=== PATIENT | male | born 1950 | race Caucasian/White ===

== ENCOUNTER 2023-09-17 10:48 | Outpatient (CLI) | payer MEDICARE, SELFPAY ==
--- NOTE | 2023-09-17 10:57 | ECG_ITS ---
Measurements Intervals [place] Rate: 60 P: HI: 0 QRS: 217 QRSD: 158 T: 47 QT: 432 QTc: 432 Interpretive Statements ELECTRONIC VENTRICULAR PACEMAKER UNDERLYING PROBABLY ATRIAL TACHYCARDIA/FLUTTER BASELINE ARTIFACT- I, II, III, AVR, AVL, AVF, V4-V6 NO FURTHER INTERPRETATION IS POSSIBLE ABNORMAL ECG COMPARED TO ECG 07/30/2019 11:03:40 UNDERLYING ATRIAL TACHYCARDA/FLUTTER NOW PRESENT Electronically Signed On 09-17-2023 12:07:56 [employer]EDER FRAME TENDER by Roby Marshall D.O.
== END 2023-09-17 10:49 | disposition home or self-care (01) ==
LOC: ANHSURGERY 10:52
PROVIDERS: PCP Family Medicine; Visit Provider Urology
DX: Z01.818 Encounter for other preprocedural examination (principal); E78.5 Hyperlipidemia, unspecified; R94.31 Abnormal electrocardiogram [ECG] [EKG]; R93.1 Abnormal findings on diagnostic imaging of heart and coronary circulation; Z95.0 Presence of cardiac pacemaker
CPT/HCPCS: 93005

== ENCOUNTER 2023-10-10 00:22 | Day surgery (SDC) | payer MEDICARE, SELFPAY ==
[2023-09-12 15:28] VITALS: BMI 43.4
--- NOTE | 2023-09-12 15:36 | PC.NURSE ---
Addendum entered by Gretchen Durbin RN 10/02/23 08:51: PT TO ARRIVE AT 0600 ON 10/10/23 FOR SURGERY AT 0730. PER PT, LAST DOSE OF ELIQUIS AND DICLOFENAC 7 DAYS PRIOR TO SURGERY. LAST DOSE OF VITAMINS TO BE 10/06/23. Original Note: Report to the Outpatient Waiting Room, entrance under the green pavilion located off [facility], at time 11:00 on date 09/19/23. Planned Procedure Time: 1:00. Time changes happen often and if your time is changed the preop area will call you the afternoon before. - You and your visitor will be asked to self-screen and do not enter if you have any COVID symptoms. - A mask is optional within the hospital at this time. Patients may have clear liquids (water, carbonated beverages, clear teas, apple juice) until 3 hours prior to surgery (10:00) with a maximum of 20 ounces. - No food from midnight until time of surgery Take the following medications with a SIP of water the morning of surgery: TRAMADOL/HYDROCODONE, TYLENOL NEEDED, GABAPENTIN DO NOT STOP ANY OF YOUR OTHER PRESCRIPTION MEDICATIONS PRIOR TO SURGERY ?EXCEPT THE FOLLOWING Medications to discontinue per physician: VITAMINS/SUPPLEMENTS Date to take last dose: 09/15/23 LAST DOSE OF ELIQUIS AND DICLOFENAC 09/11 (PER PT INSTRUCTIONS FROM DR. SUAREZ) Please no make-up, nail portuguese, hairspray, perfume, deodorant, or body powder the day of surgery. No jewelry (including any body piercings) or valuables the day of surgery, leave them at home. Please take a shower or bath the night before, or the morning of, surgery with an antibacterial soap. Wear comfortable, loose fitting clothing. - Jewelry must be removed prior to entering the operating room. Rings and piercings that are not removed may be cut off. - The hospital will not accept responsibility for valuables. - Please leave all valuables, including medications, at home the day of surgery. If you are going home after surgery, a licensed buggy driver must drive you home. - NO public transportation without another adult if you receive anesthesia. - We recommend that an adult stay with you for 24 hours following discharge. - We also recommend that you do not drive, make important decision, drink alcoholic beverages, or take any drugs that were not prescribed by your health care provider for at least 24 hours after your discharge time. Follow any additional instructions given to you from your surgeon. If you or anyone in your household have experienced Covid symptoms in the past week, please notify your surgeon or the nurse liaison at the phone number below for possible testing. Telephone instructions given to COY - ANGI and asked if any additional questions and then verbalized understanding. Patient advised to call surgeon office or pre surgery nurse liaison [phone] if any additional questions.
--- NOTE | 2023-09-13 10:38 | PM.HPGS ---
History of Present Illness History of Present Illness Consent: Risks, benefits, and alternatives have been discussed and questions answered. Patient agrees to proceed with procedure. Chief complaint: Gross Hematuria Narrative: Fritz Dias is a 73 year old male With a history of prostate cancer status post pelvic radiation completed in November 2019. He recently developed hematuria. CT imaging revealed normal upper urinary tracts with a pancreatic cyst. Cystoscopy, on the 2nd occasion, showed an unusual small sessile lesion left lateral bladder wall. After discussion of options he has elected for TURBT. He is aware the risks including, but not limited to, bladder wall injury necessitating a catheter open procedures, recurrent hematuria and need for additional interventions. Review of Systems Cardiovascular: Cardiovascular: Denies chest pain, Denies lightheadedness, Denies palpitations and Denies dyspnea Respiratory: Respiratory: Denies dyspnea Gastrointestinal: Gastrointestinal: Denies diarrhea, Denies nausea and Denies vomiting Genitourinary: Genitourinary: Denies hematuria and Denies dysuria Endocrine: Endocrine: Denies palpitations [facility] Past Medical History Medical History (Updated 09/13/23 @ 10:51 by Melchor Doty MD) Atrial fibrillation History of bruising easily History of hormone therapy [id number] History of prostate cancer History of radiation therapy (~2019) Prostate Cancer radiation treatment History of stress test (~2020) Hyperlipidemia Hyperlipidemia Osteoarthritis Pacemaker (~2015) Surgical History Surgical History (Updated 06/03/23 @ 10:19 by Gloria Shanks MA) History of arthroscopic knee surgery (~2021) History of cholecystectomy (~1994) History of dental surgery History of hip replacement (~2019) History of knee replacement (~2018) History of 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 Social History Social History (Updated 06/03/23 @ 10:35 by Gloria Shanks MA) Smoking status: Never smoker Alcohol intake: never Substance use: never Substance use type: does not use Lack of Transportation: No Lack of Food: Never True Current Housing: I Have Housing Concerned About Future Housing: No Difficulty Paying Gas/Electric Bills: No Difficulty Paying for Meds: No Currently Unemployed: No Education: Master's Degree or Higher Difficulty w/ Childcare or Family Care: No Living arrangements: with family Spiritual care concerns: No Meds Home Medications and Allergies Home Medications Medication Instructions Recorded Confirmed Type allopurinol 100 mg tablet 100 mg PO DAILY 07/29/19 09/12/23 History apixaban 5 mg tablet (Eliquis) 5 mg PO BID 07/29/19 09/12/23 History colchicine 0.6 mg capsule 0.6 mg PO PRN PRN Pain 07/29/19 09/12/23 History diclofenac sodium 75 mg 150 mg PO BID 07/29/19 09/12/23 History tablet,delayed release gabapentin 300 mg capsule 300 mg PO BID 07/29/19 09/12/23 History tramadol 50 mg tablet 50 mg PO PRN PRN Pain 07/29/19 09/12/23 History megestrol 40 mg tablet 40 mg PO DAILY 06/03/23 09/12/23 History multivitamin 1 tablet PO DAILY 06/03/23 09/12/23 History selenium 200 mcg tablet 200 mcg PO DAILY 06/03/23 09/12/23 History atorvastatin 80 mg tablet 80 mg PO HS 09/12/23 09/12/23 History hydrocodone 5 mg-acetaminophen 325 1 tablet PO Q6H PRN Pain 09/12/23 09/12/23 History mg tablet lisinopril 5 mg tablet 5 mg PO DAILY 09/12/23 09/12/23 History topiramate 50 mg tablet 50 mg PO HS 09/12/23 09/12/23 History Allergies Allergy/AdvReac Type Severity Reaction Status Date / Time No Known Allergies Allergy Verified 09/12/23 15:20 Exam Const: General: no acute distress Resp: Effort & Inspection: normal respiratory effort GI: Inspection: non-distended GI Palp: No abdominal tenderness and No Guarding due to palpation present (GI) Auscultation: normal bowel sounds Assessment and Plan Assessment and plan (1) Gr
--- NOTE | 2023-10-02 08:52 | PC.NURSE ---
Pt states no changes in medications or health history since initial interview. Pt states cold/respiratory symptoms have resolved. New pre-op instructions reviewed with pt. Pt denies further questions at this time.
--- NOTE | 2023-10-04 07:30 | PM.HPGS ---
History of Present Illness History of Present Illness Consent: Risks, benefits, and alternatives have been discussed and questions answered. Patient agrees to proceed with procedure. Chief complaint: Gross Hematuria Narrative: Fritz Dias is a 73 year old male Who is well known to me with a history of prostate cancer status post pelvic radiation. Recently he developed transient gross hematuria. CT imaging showed normal upper urinary tracts but bladder wall thickening. Cystoscopy showed a possible mucosal abnormality/ neoplastic process in the left anterior lateral bladder. He presents today for cystoscopy with TURBT/ bladder biopsy. He is aware of the risks of the procedure including, but not limited to, adverse cardiopulmonary events, postoperative hematuria, need for additional intervention. Review of Systems Review of Systems: All systems reviewed & are unremarkable except as noted in HPI and below PMFSH Past Medical History Medical History (Updated 09/13/23 @ 10:51 by Melchor Doty MD) Atrial fibrillation History of bruising easily History of hormone therapy [id number] History of prostate cancer History of radiation therapy (~2019) Prostate Cancer radiation treatment History of stress test (~2020) Hyperlipidemia Hyperlipidemia Osteoarthritis Pacemaker (~2015) Surgical History Surgical History (Updated 06/03/23 @ 10:19 by Gloria Shanks MA) History of arthroscopic knee surgery (~2021) History of cholecystectomy (~1994) History of dental surgery History of hip replacement (~2019) History of knee replacement (~2018) History of 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 Social History Social History (Updated 06/03/23 @ 10:35 by Gloria Shanks MA) Smoking status: Never smoker Alcohol intake: never Substance use: never Substance use type: does not use Lack of Transportation: No Lack of Food: Never True Current Housing: I Have Housing Concerned About Future Housing: No Difficulty Paying Gas/Electric Bills: No Difficulty Paying for Meds: No Currently Unemployed: No Education: Master's Degree or Higher Difficulty w/ Childcare or Family Care: No Living arrangements: with family Spiritual care concerns: No Meds Home Medications and Allergies Home Medications Medication Instructions Recorded Confirmed Type allopurinol 100 mg tablet 100 mg PO DAILY 07/29/19 10/02/23 History apixaban 5 mg tablet (Eliquis) 5 mg PO BID 07/29/19 10/02/23 History colchicine 0.6 mg capsule 0.6 mg PO PRN PRN Pain 07/29/19 10/02/23 History diclofenac sodium 75 mg 150 mg PO BID 07/29/19 10/02/23 History tablet,delayed release gabapentin 300 mg capsule 300 mg PO BID 07/29/19 10/02/23 History tramadol 50 mg tablet 50 mg PO PRN PRN Pain 07/29/19 10/02/23 History megestrol 40 mg tablet 40 mg PO DAILY 06/03/23 10/02/23 History multivitamin 1 tablet PO DAILY 06/03/23 10/02/23 History selenium 200 mcg tablet 200 mcg PO DAILY 06/03/23 10/02/23 History atorvastatin 80 mg tablet 80 mg PO HS 09/12/23 10/02/23 History hydrocodone 5 mg-acetaminophen 325 1 tablet PO Q6H PRN Pain 09/12/23 10/02/23 History mg tablet lisinopril 5 mg tablet 5 mg PO DAILY 09/12/23 10/02/23 History topiramate 50 mg tablet 50 mg PO HS 09/12/23 10/02/23 History Allergies Allergy/AdvReac Type Severity Reaction Status Date / Time No Known Allergies Allergy Verified 10/02/23 08:51 Exam Const: General: no acute distress Resp: Effort & Inspection: normal respiratory effort GI: Inspection: non-distended GI Palp: No abdominal tenderness and No Guarding due to palpation present (GI) Auscultation: normal bowel sounds Assessment and Plan Assessment and plan (1) Gross hematuria: Code(s): R31.0 - Gross hematuria Status: Acute Assessment and Plan: Cystoscopy, bladder biopsy, possible TURBT
--- NOTE | 2023-10-09 13:02 | WPDANESEPPF ---
Anes - Initial Pre Proc Eval Procedure: Operation Date: 10/10/23 07:30 Proposed Procedures p Trans Urethral Resection Bladder Tumor, Bladder Biopsy - Melchor Doty MD Date/Time: 10/09/23 13:02 Surgeon: Melchor Doty MD Pre Op Diagnosis: Gross Hematuria Patient Data Age: 73 Gender: M Height: 1.83 m Weight: 145.15 kg Allergies Allergy/AdvReac Type Severity Reaction Status Date / Time No Known Allergies Allergy Verified 10/10/23 06:21 Home Medications Medication Instructions Recorded Confirmed Type allopurinol 100 mg tablet 100 mg PO DAILY 07/29/19 10/10/23 History apixaban 5 mg tablet (Eliquis) 5 mg PO BID 07/29/19 10/10/23 History colchicine 0.6 mg capsule 0.6 mg PO PRN PRN Pain 07/29/19 10/02/23 History diclofenac sodium 75 mg 150 mg PO BID 07/29/19 10/10/23 History tablet,delayed release gabapentin 300 mg capsule 300 mg PO BID 07/29/19 10/10/23 History tramadol 50 mg tablet 50 mg PO PRN PRN Pain 07/29/19 10/10/23 History multivitamin 1 tablet PO DAILY 06/03/23 10/10/23 History selenium 200 mcg tablet 200 mcg PO DAILY 06/03/23 10/10/23 History atorvastatin 80 mg tablet 80 mg PO HS 09/12/23 10/10/23 History hydrocodone 5 mg-acetaminophen 325 1 tablet PO Q6H PRN Pain 09/12/23 10/02/23 History mg tablet Patient hx anesthesia problems: none Family hx anesthesia problems: none Results Review: All pre-operative results and documents have been reviewed as part of the pre-operative evaluation. [facility] Past Medical History Medical History (Updated 10/09/23 @ 13:02 by Porfirio Hernandez DO) Atrial fibrillation History of bruising easily History of hormone therapy [id number] History of prostate cancer History of radiation therapy (~2019) Prostate Cancer radiation treatment History of stress test (~2020) Hyperlipidemia Hyperlipidemia Hypertension Osteoarthritis Pacemaker (~2015) Surgical History Surgical History (Updated 10/09/23 @ 13:02 by Porfirio Hernandez DO) History of appendectomy History of arthroscopic knee surgery (~2021) History of cholecystectomy (~1994) History of dental surgery History of hip replacement (~2019) History of knee replacement (~2018) History of 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 Social History Social History (Updated 06/03/23 @ 10:35 by Gloria Shanks MA) Smoking status: Never smoker Alcohol intake: never Substance use: never Substance use type: does not use Lack of Transportation: No Lack of Food: Never True Current Housing: I Have Housing Concerned About Future Housing: No Difficulty Paying Gas/Electric Bills: No Difficulty Paying for Meds: No Currently Unemployed: No Education: Master's Degree or Higher Difficulty w/ Childcare or Family Care: No Living arrangements: with family Spiritual care concerns: No Anes - Eval Final PreProcedure Day of Procedure 10/09/23 13:02 Patient weight: morbidly obese Heart: regular rate and rhythm Lungs: clear to auscultation Airway: Mallampati scale class II Neurological: alert and oriented Last oral intake: >/= 8 hours ASA classification: III Emergent: no Anesthetic plan: proceed Anesthesia type and monitoring: general LMA and standard monitoring Results Review: All pre-operative results and documents have been reviewed as part of the pre-operative evaluation. Informed Consent: The patient's anesthetic plan and its attendant risks and benefits were discussed with the patient/family/POA. Questions were solicited and answers provided to the satisfaction of the patient/family/POA.
[2023-10-10] VITALS (7 sets, daily range): BP systolic 112–178; BP diastolic 74–97; PULSE 59–65; RESP 14–20; TEMP 36.3–36.6; O2SAT 95–100
--- NOTE | 2023-10-10 06:40 | WPDHPUPDATE1 ---
History and Physical Update Update Date/Time: 10/10/23 06:40 History and Physical has been reviewed, including an updated exam of the patient. There are NO changes in the patient's condition. Risks, benefits, and alternatives have been discussed and questions answered. Patient agrees to proceed with procedure.
[2023-10-10] MEDS: LACTATED RINGERS 1,000 ML 30 ML IV CONT (06:45)
[2023-10-10] MEDS: ceFAZolin 3 GM/D5W 100 ML 100 ML IVPB (07:27)
[2023-10-10] MEDS: LIDOCAINE HCL 2% GEL UROJET 10 ML PKG MUCOUS MEM (07:44)
--- NOTE | 2023-10-10 08:04 | W.PM.PROC2 ---
Procedure Note - Detailed Date of Procedure 10/10/23 Pre-op Diagnosis Gross Hematuria Post-op Diagnosis Same Procedure Performed Transurethral resection bladder Surgeon Melchor Doty MD Anesthesia General Description of Procedure Patient is brought to the operative suite where she is prepped draped in routine sterile fashion while in dorsal lithotomy position after the uneventful induction of a general LMA anesthetic. Cystoscopy undertaken with a 24 F resectoscope. He has very moderate lateral lobe hyperplasia of his prostate with a 2 cm prostatic urethra. There was no significant median lobe. Bladder shows about 2-3 cm area of unusual hyperemia in the left anterior lateral bladder wall. This is oozing blood slowly. Grossly, this appears to be inflammatory and not typical of a urothelial neoplasm. Certainly, it is not papillary in nature. The remainder of the bladder mucosa is perfectly normal without hyperemia or other evidence neoplastic changes. Ureteral orifices in normal position with clear efflux. Using a loop electrode I essentially resected this area of hyperemia with care taken to avoid any injury to the integrity of the bladder wall. The base and periphery was cauterized with a rollerball. All chips were evacuated and the resectoscope was removed. Drains No Packing Yes Pathology None sent Complications No immediate complications Condition Stable Disposition PACU
[2023-10-10] MEDS: fentaNYL CITRATE INJ (*CRX) 100 MCG/2 ML VIAL 25 MCG IV PUSH ×2 (08:16→08:18)
[2023-10-10] MEDS: oxyCODONE HCL (*CRX) 5 MG TAB IR PO (09:17)
== END 2023-10-10 09:35 | disposition home or self-care (01) ==
PROVIDERS: PCP Family Medicine; Visit Provider Urology
PROC: 0TBB8ZZ Excision of Bladder, Via Natural or Artificial Opening Endoscopic (ICD-10-PCS; CPT 52235; principal; 2023-10-10 07:30)
DX: C67.3 Malignant neoplasm of anterior wall of bladder (principal); R31.0 Gross hematuria; I10 Essential (primary) hypertension; E78.5 Hyperlipidemia, unspecified; E66.01 Morbid (severe) obesity due to excess calories; Z68.41 Body mass index [BMI] 40.0-44.9, adult; Z79.01 Long term (current) use of anticoagulants; Z79.891 Long term (current) use of opiate analgesic; Z95.0 Presence of cardiac pacemaker; Z90.49 Acquired absence of other specified parts of digestive tract; Z98.890 Other specified postprocedural states; Z85.46 Personal history of malignant neoplasm of prostate; Z92.3 Personal history of irradiation; Z86.79 Personal history of other diseases of the circulatory system
CPT/HCPCS: 52235; 88305; 93005; A9270; J0690; J2250; J2405; J2704; J3010; J7120

== ENCOUNTER 2023-11-21 00:25 | Day surgery (SDC) | payer MEDICARE, SELFPAY ==
[2023-11-08 13:36] VITALS: BMI 40.1
--- NOTE | 2023-11-08 13:43 | PC.NURSE ---
Report to the Outpatient Waiting Room, entrance under the green pavilion located off [facility], at time __0600 on date __11/21/23 . Planned Procedure Time: ____729____. Time changes happen often and if your time is changed the preop area will call you the afternoon before. - You and your visitor will be asked to self-screen and do not enter if you have any COVID symptoms. - A mask is optional within the hospital at this time. Patients may have clear liquids (water, carbonated beverages, clear teas, apple juice) until 3 hours prior to surgery (0430 AM) with a maximum of 20 ounces. - No food from midnight until time of surgery - Infants may have breast milk until 4 hours before surgery, infant formula 6 hours prior to surgery. - Children will be allowed to drink immediately following surgery. If applicable, please bring a bottle or sippy cup to assist with drinking. Juice, water, soda, and popsicles are readily available. For infants on formula, please bring formula the day of surgery. Pacifiers are allowed. Take the following medications with a SIP of water the morning of surgery: __GABAPENTIN, & PAIN MED IF NEEDED DO NOT STOP ANY OF YOUR OTHER PRESCRIPTION MEDICATIONS PRIOR TO SURGERY ?EXCEPT THE FOLLOWING Medications to discontinue per physician _DICLOFENAC PER DR. SUAREZ - PT STATES STOPPING ELIQUIS 11/03/23___ Medications to discontinue per ANESTHESIA - MULTIVITAMIN 3 DAYS PRIOR UNLESS INSTRUCTED OTHERWISE BY DR. SUAREZ, Date to take last dose_11/17/23__ Please no make-up, nail syriac, hairspray, perfume, deodorant, or body powder the day of surgery. No jewelry (including any body piercings) or valuables the day of surgery, leave them at home. Please take a shower or bath the night before, or the morning of, surgery with an antibacterial soap. Wear comfortable, loose fitting clothing. Children are encouraged to wear pajamas. - Jewelry must be removed prior to entering the operating room. Rings and piercings that are not removed may be cut off. - The hospital will not accept responsibility for valuables. - Please leave all valuables, including medications, at home the day of surgery. If you are going home after surgery, a licensed skidder driver must drive you home. - NO public transportation without another adult if you receive anesthesia. - We recommend that an adult stay with you for 24 hours following discharge. - We also recommend that you do not drive, make important decision, drink alcoholic beverages, or take any drugs that were not prescribed by your health care provider for at least 24 hours after your discharge time. For Pediatric surgeries, we recommend two adults accompany the child home. Follow any additional instructions given to you from your surgeon. If you or anyone in your household have experienced Covid symptoms in the past week, please notify your surgeon or the nurse liaison at the phone number below for possible testing. Telephone instructions given to ____PT and asked if any additional questions and then verbalized understanding. Patient advised to call surgeon office or pre surgery nurse liaison [phone] if any additional questions.
--- NOTE | 2023-11-20 12:06 | WPDANESEPPF ---
Anes - Initial Pre Proc Eval Procedure: Operation Date: 11/21/23 07:30 Proposed Procedures p Re-Resection Bladder Tumor Base - Melchor Doty MD Date/Time: 11/20/23 12:06 Surgeon: Melchor Doty MD Pre Op Diagnosis: Urethral Ca Patient Data Age: 73 Gender: M Height: 1.83 m Weight: 134.09 kg Allergies Allergy/AdvReac Type Severity Reaction Status Date / Time No Known Allergies Allergy Verified 11/21/23 07:35 Home Medications Medication Instructions Recorded Confirmed Type allopurinol 100 mg tablet 100 mg PO DAILY 07/29/19 11/21/23 History apixaban 5 mg tablet (Eliquis) 5 mg PO BID 07/29/19 11/21/23 History colchicine 0.6 mg capsule 0.6 mg PO PRN PRN Pain 07/29/19 11/08/23 History diclofenac sodium 75 mg 150 mg PO BID 07/29/19 11/08/23 History tablet,delayed release gabapentin 300 mg capsule 300 mg PO BID 07/29/19 11/21/23 History tramadol 50 mg tablet 50 mg PO PRN PRN Pain 07/29/19 11/08/23 History multivitamin 1 tablet PO DAILY 06/03/23 11/08/23 History selenium 200 mcg tablet 200 mcg PO DAILY 06/03/23 11/08/23 History atorvastatin 80 mg tablet 80 mg PO HS 09/12/23 11/08/23 History hydrocodone 5 mg-acetaminophen 325 1 - 2 tablet PO Q6H PRN pain #20 10/10/23 11/08/23 Rx mg tablet tabs hydrocodone 5 mg-acetaminophen 325 1 - 2 tablet PO Q6H PRN pain #12 11/21/23 Rx mg tablet tabs Patient hx anesthesia problems: none Family hx anesthesia problems: none Results Review: All pre-operative results and documents have been reviewed as part of the pre-operative evaluation. [facility] Past Medical History Medical History (Updated 11/21/23 @ 07:57 by Melchor Doty MD) Atrial fibrillation History of bruising easily History of hormone therapy [id number] History of prostate cancer History of radiation therapy (~2019) Prostate Cancer radiation treatment History of stress test (~2020) Hyperlipidemia Hyperlipidemia Hypertension Osteoarthritis Pacemaker (~2015) Surgical History Surgical History (Updated 10/09/23 @ 13:02 by Porfirio Hernandez DO) History of appendectomy History of arthroscopic knee surgery (~2021) History of cholecystectomy (~1994) History of dental surgery History of hip replacement (~2019) History of knee replacement (~2018) History of 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 Social History Social History (Updated 06/03/23 @ 10:35 by Gloria Shanks MA) Smoking status: Never smoker Second hand tobacco smoke exposure: No Alcohol intake: never Substance use: never Substance use type: does not use Lack of Transportation: No Lack of Food: Never True Current Housing: I Have Housing Concerned About Future Housing: No Difficulty Paying Gas/Electric Bills: No Difficulty Paying for Meds: No Currently Unemployed: No Education: Master's Degree or Higher Difficulty w/ Childcare or Family Care: No Living arrangements: with family Spiritual care concerns: No Anes - Eval Final PreProcedure Day of Procedure 11/20/23 12:06 Patient weight: morbidly obese Heart: regular rate and rhythm Lungs: clear to auscultation Airway: Mallampati scale class II Neurological: alert and oriented Last oral intake: >/= 8 hours ASA classification: III Emergent: no Anesthetic plan: proceed Anesthesia type and monitoring: general LMA and standard monitoring Results Review: All pre-operative results and documents have been reviewed as part of the pre-operative evaluation. Informed Consent: The patient's anesthetic plan and its attendant risks and benefits were discussed with the patient/family/POA. Questions were solicited and answers provided to the satisfaction of the patient/family/POA.
[2023-11-21] VITALS (9 sets, daily range): BP systolic 127–155; BP diastolic 62–93; PULSE 59–66; RESP 14–18; TEMP 36.2–36.3; O2SAT 92–98
--- NOTE | 2023-11-21 06:16 | WPDHPUPDATE1 ---
History and Physical Update Update Date/Time: 11/21/23 06:16 History and Physical has been reviewed, including an updated exam of the patient. There are NO changes in the patient's condition. Risks, benefits, and alternatives have been discussed and questions answered. Patient agrees to proceed with procedure.
[2023-11-21] MEDS: ceFAZolin 3 GM/D5W 100 ML 100 ML IVPB (07:24)
[2023-11-21] MEDS: LACTATED RINGERS 1,000 ML 30 ML IV CONT ×2 (07:34→08:52)
[2023-11-21] MEDS: LIDOCAINE HCL 2% GEL UROJET 10 ML PKG MUCOUS MEM (07:39)
--- NOTE | 2023-11-21 07:52 | W.PM.PROC2 ---
Procedure Note - Detailed Date of Procedure 11/21/23 Pre-op Diagnosis History of bladder cancer Post-op Diagnosis Same Procedure Performed Re-resection bladder tumor base Surgeon Melchor Doty MD Anesthesia General Findings No gross recurrent urothelial carcinoma Description of Procedure Patient brought to the operative suite was prepped draped in routine sterile fashion while dorsal lithotomy position after the uneventful induction of a general LMA anesthetic. Twenty-four F resectoscope was placed in his bladder. He has moderate lateral lobe hyperplasia of the prostate and high median bar. Bladder shows an area of recent resection and left anterior lateral bladder wall. The remainder of the bladder mucosa is normal without hyperemia or obvious neoplasm. Using a 24 F resectoscope loop I resected the bladder tumor base with an attempt made to include detrusor muscle for pathological evaluation of invasion. The base and periphery were cauterized. This was all done with preservation of the ureteral orifices. Resectoscope was removed the patient was taken recovery room in good condition Pathology None sent Complications No immediate complications Condition Stable Disposition PACU
[2023-11-21] MEDS: fentaNYL CITRATE INJ (*CRX) 100 MCG/2 ML VIAL 25 MCG IV PUSH ×8 (08:00→08:23)
[2023-11-21] MEDS: HYOSCYAMINE SULFATE 0.125 MG TABLET PO (08:10)
[2023-11-21] MEDS: ACETAMINOPHEN 500 MG TABLET 1000 MG PO (08:27)
[2023-11-21] MEDS: HYDROmorphone HCL INJ (*CRX) 1 MG/ML SYR 0.25 MG IV PUSH ×3 (08:29→08:51)
[2023-11-21] MEDS: oxyCODONE HCL (*CRX) 5 MG TAB IR PO (09:24)
== END 2023-11-21 10:10 | disposition home or self-care (01) ==
PROVIDERS: PCP Family Medicine; Visit Provider Urology
PROC: 0TBB8ZZ Excision of Bladder, Via Natural or Artificial Opening Endoscopic (ICD-10-PCS; CPT 52235; principal; 2023-11-21 07:30)
DX: Z08 Encounter for follow-up examination after completed treatment for malignant neoplasm (principal); N32.89 Other specified disorders of bladder; G47.30 Sleep apnea, unspecified; I10 Essential (primary) hypertension; E78.5 Hyperlipidemia, unspecified; E66.01 Morbid (severe) obesity due to excess calories; Z68.41 Body mass index [BMI] 40.0-44.9, adult; Z79.01 Long term (current) use of anticoagulants; Z79.891 Long term (current) use of opiate analgesic; Z98.890 Other specified postprocedural states; Z90.49 Acquired absence of other specified parts of digestive tract; Z95.0 Presence of cardiac pacemaker; Z86.79 Personal history of other diseases of the circulatory system; Z85.46 Personal history of malignant neoplasm of prostate; Z85.51 Personal history of malignant neoplasm of bladder; Z92.3 Personal history of irradiation; Z80.1 Family history of malignant neoplasm of trachea, bronchus and lung; Z82.49 Family history of ischemic heart disease and other diseases of the circulatory system
CPT/HCPCS: 52235; 88305; A9270; J0690; J1100; J1170; J2250; J2405; J2704; J3010; J7120

== ENCOUNTER 2024-05-14 01:28 | Day surgery (SDC) | payer MEDICARE, SELFPAY ==
[2024-05-07 14:25] VITALS: BMI 39.4
--- NOTE | 2024-05-07 14:55 | PC.NURSE ---
Report to the Outpatient Waiting Room, entrance under the green pavilion located off [facility], at time __11:00AM_ on date __05/14/24_. Planned Procedure Time: ___1:00PM .? Time changes happen often and if your time is changed the preop area will call you the afternoon before. - You and your visitor will be asked to self-screen and do not enter if you have any COVID symptoms. Please call surgeon if you need to reschedule. - A mask is optional within the hospital at this time. Patients may have clear liquids (water, carbonated beverages, clear teas, apple juice) until 3 hours prior to surgery with a maximum of 20 ounces. - No food from midnight until time of surgery and no smoking. Take only the following medications with a SIP of water on the morning of surgery: ____GABAPENTIN. MAY ALSO TKE HYDROCODONE OR TRAMADOL NEEDED FOR PAIN. DO NOT STOP ANY OF YOUR OTHER PRESCRIPTION MEDICATIONS PRIOR TO SURGERY EXCEPT THE FOLLOWING Medications to discontinue per physician __HOLD ELIQUIS 3 DAYS PRE-OP PER DR SUAREZ- LAST DOSE 05/10/24. HOLD ALL VITAMINS/SUPPLEMENTS 3 DAYS PRE-OP PER ANESTHESIA- LAST DOSE 05/10/24 Please no make-up, nail icelandic, hairspray, perfume, deodorant, or body powder the day of surgery.? No jewelry (including any body piercings) or valuables the day of surgery, leave them at home.? Please take a shower or bath the night before, or the morning of, surgery with an antibacterial soap.? Wear comfortable, loose fitting clothing.? - Jewelry must be removed prior to entering the operating room.? Rings and piercings that are not removed may be cut off. - The hospital will not accept responsibility for valuables.? - Please leave all valuables, including medications, at home the day of surgery. If you are going home after surgery, a licensed mule driver must drive you home.? - NO public transportation without another adult if you receive anesthesia. - We recommend that an adult stay with you for 24 hours following discharge. - We also recommend that you do not drive, make important decision, drink alcoholic beverages, or take any drugs that were not prescribed by your health care provider for at least 24 hours after your discharge time. Follow any additional instructions given to you from your surgeon. Telephone instructions given to __PATIENT and asked if any additional questions and then verbalized understanding. Patient advised to call surgeon office or pre surgery nurse liaison [phone] if any additional questions.
[2024-05-14] VITALS (10 sets, daily range): BP systolic 152–174; BP diastolic 70–104; PULSE 59–68; RESP 16–20; TEMP 36.4–36.6; O2SAT 94–100
--- NOTE | 2024-05-14 07:44 | WPDHPUPDATE1 ---
History and Physical Update Update Date/Time: 05/14/24 07:44 History and Physical has been reviewed, including an updated exam of the patient. There are NO changes in the patient's condition. Risks, benefits, and alternatives have been discussed and questions answered. Patient agrees to proceed with procedure.
--- NOTE | 2024-05-14 08:20 | WPDANESEPPF ---
Anes - Initial Pre Proc Eval Procedure: Operation Date: 05/14/24 11:45 Proposed Procedures p Transurethral Resection of Bladder Tumor with Gemcitabine Instillation - Melchor Doty MD Date/Time: 05/14/24 08:20 Surgeon: Melchor Doty MD Pre Op Diagnosis: hx of bladder cancer Patient Data Age: 74 Gender: M Height: 1.83 m Weight: 132 kg Allergies Allergy/AdvReac Type Severity Reaction Status Date / Time niacin Allergy Rash Verified 05/14/24 10:59 Home Medications Medication Instructions Recorded Confirmed Type allopurinol 100 mg tablet 100 mg PO DAILY 07/29/19 05/14/24 History apixaban 5 mg tablet (Eliquis) 5 mg PO BID 07/29/19 05/14/24 History colchicine 0.6 mg capsule 0.6 mg PO PRN PRN Pain 07/29/19 05/07/24 History diclofenac sodium 75 mg 75 mg PO BID 07/29/19 05/07/24 History tablet,delayed release gabapentin 300 mg capsule 300 mg PO BID 07/29/19 05/14/24 History tramadol 50 mg tablet 50 mg PO PRN PRN Pain 07/29/19 05/07/24 History multivitamin 1 tablet PO DAILY 06/03/23 05/14/24 History selenium 200 mcg tablet 200 mcg PO DAILY 06/03/23 05/07/24 History atorvastatin 80 mg tablet 80 mg PO HS 09/12/23 05/07/24 History hydrocodone 5 mg-acetaminophen 325 1 - 2 tablet PO Q6H PRN pain #12 11/21/23 05/07/24 Rx mg tablet tabs solifenacin 10 mg tablet 10 mg PO DAILY 05/07/24 05/14/24 History Patient hx anesthesia problems: none Family hx anesthesia problems: none Results Review: All pre-operative results and documents have been reviewed as part of the pre-operative evaluation. [facility] Past Medical History Medical History (Updated 11/21/23 @ 07:57 by Melchor Doty MD) Atrial fibrillation History of bruising easily History of hormone therapy 2050-7980 History of prostate cancer History of radiation therapy (~2019) Prostate Cancer radiation treatment History of stress test (~2020) Hyperlipidemia Hyperlipidemia Hypertension Osteoarthritis Pacemaker (~2015) Surgical History Surgical History (Updated 10/09/23 @ 13:02 by Porfirio Hernandez DO) History of appendectomy History of arthroscopic knee surgery (~2021) History of cholecystectomy (~1994) History of dental surgery History of hip replacement (~2019) History of knee replacement (~2018) History of 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 Social History Social History (Updated 06/03/23 @ 10:35 by Gloria Shanks DIRECTOR OF HUMAN RESOURCES) Smoking status: Never smoker Second hand tobacco smoke exposure: No Alcohol intake: never Substance use: never Substance use type: does not use Lack of Transportation: No Lack of Food: Never True Current Housing: I Have Housing Concerned About Future Housing: No Difficulty Paying Gas/Electric Bills: No Difficulty Paying for Meds: No Currently Unemployed: No Education: Master's Degree or Higher Difficulty w/ Childcare or Family Care: No Living arrangements: with family Additional living arrangements comments: Spiritual care concerns: No Anes - Eval Final PreProcedure Day of Procedure 05/14/24 08:20 Patient weight: obese Heart: regular rate and rhythm Lungs: clear to auscultation Airway: Mallampati scale class III Neurological: alert and oriented Last oral intake: >/= 8 hours ASA classification: III Emergent: no Anesthetic plan: proceed Anesthesia type and monitoring: general LMA and standard monitoring Results Review: All pre-operative results and documents have been reviewed as part of the pre-operative evaluation. Informed Consent: The patient's anesthetic plan and its attendant risks and benefits were discussed with the patient/family/POA. Questions were solicited and answers provided to the satisfaction of the patient/family/POA.
[2024-05-14] MEDS: LACTATED RINGERS 1,000 ML 30 ML IV CONT (10:30)
[2024-05-14] MEDS: ceFAZolin 3 GM/D5W 100 ML 100 ML IVPB (12:05)
[2024-05-14] MEDS: LIDOCAINE HCL 2% GEL UROJET 10 ML PKG MUCOUS MEM (12:14)
--- NOTE | 2024-05-14 12:31 | W.PM.PROC2 ---
Procedure Note - Detailed Date of Procedure 05/14/24 Pre-op Diagnosis Hx of bladder cancer Post-op Diagnosis Same Procedure Performed TURBT (medium, 3 cm) Surgeon Melchor Doty MD Anesthesia General Description of Procedure Patient is brought to the operative suite was prepped and draped in routine sterile fashion while in dorsal lithotomy position after the uneventful induction of a general LMA anesthetic. Twenty-four F resectoscope was placed in his bladder. He had moderate lateral lobe hyperplasia of the prostate with high median bar. Bladder shows is unusual area of persistent incrustation in the left anterior lateral bladder wall. There was no julia neoplasm either at that site or elsewhere in the bladder. Using a 24 F resectoscope loop I resected that abnormal area in its entirety with an attempt made to include detrusor muscle for pathological evaluation of invasion. Patient periphery was cauterized with the rollerball. Estimated Blood Loss 0 Drains Yes Packing No Pathology Yes Complications No immediate complications Condition Stable
--- NOTE | 2024-05-14 12:32 | W.PM.PROC2 ---
Procedure Note - Detailed Date of Procedure 05/14/24 Pre-op Diagnosis hx of bladder cancer Post-op Diagnosis Same Procedure Performed Gemcitabine installation Surgeon Melchor Doty MD Anesthesia None Description of Procedure With the patient in the supine position, a 16F Lugo catheter is placed using sterile technique. Using a protective facemask, gown and double layer of gloves Gemcitabine 2gm in 100cc saline is administered through the catheter/into the bladder. The catheter is then plugged. Patient was instructed to lie supine x20min, then to roll both the left and right x20 min. each. Total dwell time will be 60 min., after which the bladder will be drained and catheter removed. Estimated Blood Loss 0 Drains No Pathology None sent Complications No immediate complications
[2024-05-14] MEDS: SODIUM CHLORIDE 0.9% IV 23.7 ML, GEMCITABINE HCL 1,000 MG BLADDER ×2 (12:43)
[2024-05-14] MEDS: fentaNYL CITRATE INJ (*CRX) 100 MCG/2 ML VIAL 25 MCG IV PUSH ×7 (12:45→13:47)
[2024-05-14] MEDS: oxyCODONE HCL (*CRX) 5 MG TAB IR PO (14:30)
== END 2024-05-14 15:00 | disposition home or self-care (01) ==
PROVIDERS: PCP Family Medicine; Visit Provider Urology
PROC: 0TBB8ZZ Excision of Bladder, Via Natural or Artificial Opening Endoscopic (ICD-10-PCS; CPT 52235; principal; 2024-05-14 11:45)
DX: Z08 Encounter for follow-up examination after completed treatment for malignant neoplasm (principal); Z85.51 Personal history of malignant neoplasm of bladder; I48.91 Unspecified atrial fibrillation; I10 Essential (primary) hypertension; E78.5 Hyperlipidemia, unspecified; Z95.0 Presence of cardiac pacemaker; Z85.46 Personal history of malignant neoplasm of prostate; Z92.3 Personal history of irradiation; Z79.01 Long term (current) use of anticoagulants; E66.9 Obesity, unspecified; Z68.41 Body mass index [BMI] 40.0-44.9, adult
CPT/HCPCS: 52235; 51720; 88305; A9270; J0690; J1100; J2405; J2704; J3010; J7120; J9201